=== PATIENT | male | born 1965 | race Caucasian/White ===

== ENCOUNTER 2016-10-17 20:05 | Emergency (ER) | payer OTHER ==
[2016-10-17 20:39] VITALS: BP 137/85; BMI 31.4
--- NOTE | 2016-10-17 21:19 | DR.GENAD ---
HPI - PCP Primary Care Physician: DENISE - Complaint/Symptoms Chief Complaint Doctors Comments: Patient tried to catch his as she was falling. He injured his right arm 4-5 days ago, now the extremity is tender and bruised. Chief Complaint:: TRIED TO STOP SPOUSE FROM FALLING DOWN WITH RIGHT ARM. RIHGHT ARM NOW HAS BRUISING AROUND ELBOW AREA GOING UP ARM AND DOWN ARM. A KNOT IS NOTED TO LOER BICEP Self Treatment fo Chief Complaint: ICE, AND ICY HOT - Source History Provided: Patient - Mode of Arrival Mode of Arrival: Ambulatory - Timing Onset of Chief Complaint: 10/14/16 PMH - PMH Past Medical History: Yes Past Medical History: Anxiety, COPD, Dyslipidemia, GERD Past Surgical History: Yes Surgical History: Appendectomy, Cholecystectomy Past Surgical History Comment: CATARACT SURGERY LEFT EYE, GLAUCOMA SHUNT LEFT EYE, ABDOMINAL SURGERY( CYST REMOVAL FROM BEHIND STOMACH) 3 HERNIA REPAIRS. GRAFT OF FEMORAL ARTERIES - Family History History of Family Medical Conditions: Yes Family Medical History: Diabetes Mellitus, Cancer, [place], Coronary Artery Disease, Heart Failure, Hypertension - Social History Does patient currently use any type of tobacco product: No Have you used tobacco products in the last 12 months: No How many years tobacco product used: 26 Does any household member use tobacco: No Alcohol Use: Rarely Do you use any recreational Drugs:: No Lives With: Spouse Lives Where: Home - infectious screening In the last 2 months have you had wt loss of >10#?: NO Have you had fever, night sweats or hemotysis?: No Have you traveled outside the country in the last 6 months?: No Isolation: Standard ROS - Review of Systems Constitutional: No Symptoms Reported Eyes: No Symptoms Reported ENTM: No Symptoms Reported Respiratoy: No Symptoms Reported Cardiovascular: No Symptoms Reported Gastrointestinal/Abdominal: No Symptoms Reported Genitourinary: No Symptoms Reported Neurological: No Symptoms Reported Musculoskeletal: Forearm (right) Integumentary: Change in Color (ecchymotic right medial forearm) Hematologic/Lymphatic: No Symptoms Reported Endocrine: No Symptoms Reported Psychiatric: No Symptoms Reported All Other Systems: Reviewed and Negative PE - Vital Signs Vitals: Temperature 97.8 F Pulse Rate 93 Respiratory Rate 16 Blood Pressure [Left Arm] 145/84 Blood Pressure [Right Arm] 119/88 Blood Pressure 137/85 O2 Sat by Pulse Oximetry 95 - General Limitations: No Limitations General Appearance: Alert, In No Apparent Distress - Head Head Exam: Normal Inspection, Atraumatic - Eyes Eye exam: Normal Appearance, PERRL, EOMI - ENT ENT Exam: Normal Exam External Ear Exam: Normal External Inspection TM/Canal Exam: Bilateral Normal Nose Exam: Normal Nose Exam, Sinus Tenderness Mouth Exam: Normal Inspection Throat Exam: Normal Inspection - Neck Neck Exam: Normal Inspection, Full ROM - Chest Chest Inspection: Normal Inspection, Symmetric Chest Wall Rise - Respiratory Respiratory Exam: Normal Lung Sounds Bilat Respiratory Exam: Bilateral Clear to Auscultation - Cardiovascular Cardiovascular Exam: Regular Rate - Abdominal Exam Abdominal Exam: Normal Inspection Abdominal Tenderness: negative: RUQ, RLQ, LUQ, LLQ, Epigastrium, Suprapubic, Diffuse, Mild, Moderate, Severe, Other - Extremities Extremities Exam: Tenderness (right bicep is tender with knot formation, forearm ), Joint Swelling, Other (decreased extension of the forearm) - Back Back Exam: Normal Inspection - Neurologic Neurological Exam: Alert, Oriented X3, CN II-XII Intact - Psychiatric Psychiatric Exam: Normal Affect - Skin Skin Exam: Warm, Dry, Intact - Diagnosis Discharge Problem: Biceps muscle tear Qualifiers: Encounter type: initial encounter Laterality: right Qualified Code(s): S46.111A - Strain of muscle, fascia and tendon of long head of biceps, right arm , initial encounter - Discharge Plan Condition: Stable - Follow ups/Referrals Follow ups/Referrals: SUSAN RODRIGUEZ [Primary Care Provider] - 3 days - Instructions
[2016-10-17] MEDS ORDERED: NORCO 7.5/325 MG TAB ONE (21:40)
[2016-10-17] MEDS ORDERED: NORCO 7.5/325 MG TAB PO ONE (21:40)
== END 2016-10-17 21:49 | disposition home or self-care (01) ==
LOC: ER 20:48
DX: S46.111A Strain of muscle, fascia and tendon of long head of biceps, right arm, initial encounter (principal); W19.XXXA Unspecified fall, initial encounter; Y92.9 Unspecified place or not applicable
CPT/HCPCS: 99282

== ENCOUNTER → 2016-10-21 | Outpatient (CLI) | payer OTHER ==
[2016-10-17 20:39] VITALS: BP 137/85
--- NOTE | 2016-10-21 17:33 | RAD ---
HISTORY: Pain Study: Right elbow series Comparison: None Findings: No acute cortical disruption or dislocation is identified. No significant joint space effusion can be seen. The radial head is unremarkable in its appearance. There is moderate soft tissue swelling along the medial aspect of the elbow. IMPRESSION: Moderate soft tissue swelling along the medial aspect of the elbow with no acute bony abnormality se en. Reported By:
--- NOTE | 2016-10-21 17:35 | RAD ---
Indication: Pain. Exam: Right forearm series. Technique: AP and lateral views were obtained of the right forearm. Findings: No fracture or dislocation is seen. The radius and ulna are intact. The joint spaces are n ormal. Impression: No abnormality seen. Reported By:
--- NOTE | 2016-10-21 17:37 | RAD ---
HISTORY: Pain Study: AP and lateral views Comparison: None Findings: No acute cortical disruption or dislocation can be identified. The humeral head appears unremarkabl e. No significant soft tissue swelling or injury can be seen. IMPRESSION: No abnormality seen. Reported By:
== END ==
LOC: RAD 14:49
PROVIDERS: ATTEND Nurse Practitioner Family
DX: M79.601 Pain in right arm (principal); M25.521 Pain in right elbow; M79.89 Other specified soft tissue disorders
CPT/HCPCS: 73060; 73070; 73090

== ENCOUNTER 2017-01-11 00:26 | Emergency (ER) | payer OTHER ==
[2017-01-11 00:54] VITALS: BP 112/79; BMI 30.8
--- NOTE | 2017-01-11 00:54 | DR.GENAD ---
HPI - PCP Primary Care Physician: wendy - HPI Comment HPI Comment: PAIN ASSOCIATED WITH SOB AND IS GETTING WORSE. NO FEVER. - Complaint/Symptoms Chief Complaint Doctors Comments: PAIN BACK AND SIDE INCLUDING LT LOWER CHEST TIMES ONE DAY. TOOK MED FOR PAIN BEFORE COMING. HAVE COPD AND TOOK NEB TREATMENT ALSO. Chief Complaint:: pain in back and side. patient has pain on inspiration and short of breath Self Treatment fo Chief Complaint: hydrocodone around 1700 and neb tx around 2230 - Nurses notes reviewed Nurses Notes Review: Yes - Source History Provided: Patient - Mode of Arrival Mode of Arrival: Ambulatory - Timing Onset of Chief Complaint: 01/09/17 Came on: Gradually - Duration Duration: Constant Duration: Days - Severity Severity: Moderate PMH - PMH Past Medical History: Yes Past Medical History: Anxiety, COPD, Dyslipidemia, GERD Past Surgical History: Yes Surgical History: Abdominal Surgery, Appendectomy, Cholecystectomy, Tonsillectomy Past Surgical History Comment: cataract removal with shunt in left eye - Family History History of Family Medical Conditions: Yes Family Medical History: Diabetes Mellitus, Cancer, [place], Coronary Artery Disease, Heart Failure, Hypertension - Social History Does patient currently use any type of tobacco product: No Have you used tobacco products in the last 12 months: No Type of Tobacco Use: None Does any household member use tobacco: No Alcohol Use: None Do you use any recreational Drugs:: No Lives With: Family Lives Where: Home - infectious screening In the last 2 months have you had wt loss of >10#?: NO Have you had fever, night sweats or hemotysis?: No Have you traveled outside the country in the last 6 months?: No Isolation: Standard ROS - Review of Systems Constitutional: See HPI, Weakness, Fatigue. negative: Chills Eyes: No Symptoms Reported. negative: Eye Pain, Discharge ENTM: Nose Congestion. negative: Ear Pain, Nose Discharge, Throat Pain Respiratoy: Productive Cough, Non-Productive Cough, Moist Cough, Barking Cough Cardiovascular: Chest Pain Gastrointestinal/Abdominal: Nausea. negative: Abdominal Pain, Constipation, Diarrhea, Vomiting Genitourinary: No Symptoms Reported. negative: Discharge, Hematuria Neurological: No Symptoms Reported Musculoskeletal: No Symptoms Reported, Back Pain (TENDER LT LOEER), Joint Swelling Integumentary: No Symptoms Reported Hematologic/Lymphatic: No Symptoms Reported Endocrine: No Symptoms Reported, See HPI, Excessive Sweating, Flushing, Intolerance to Heat All Other Systems: Reviewed and Negative PE - Vital Signs Vitals: Temperature 98 F Pulse Rate 90 Respiratory Rate 18 Blood Pressure [Left Arm] 145/84 Blood Pressure [Right Arm] 119/88 Blood Pressure 112/79 O2 Sat by Pulse Oximetry 95 - General Limitations: No Limitations - Head Head Exam: Normal Inspection - Eyes Eye exam: Normal Appearance - ENT ENT Exam: Normal External Ear Exam TM/Canal Exam: Bilateral Normal Nose Exam: Normal Nose Exam Mouth Exam: Normal Inspection Throat Exam: Normal Inspection - Neck Neck Exam: Normal Inspection - Chest Chest Inspection: Symmetric Chest Wall Rise - Respiratory Respiratory Exam: Normal Lung Sounds Bilat Respiratory Exam: Bilateral Wheezing, Bilateral Rhonchi, Upper Wheezing, Upper Rhonchi, Lower Wheezing, Lower Rhonchi - Cardiovascular Cardiovascular Exam: Regular Rate, Normal Rhythm, Normal Heart Sounds - Abdominal Exam Abdominal Exam: Normal Bowel Sounds, Soft. negative: Tenderness - Extremities Extremities Exam: Normal Inspection - Back Back Exam: Normal Inspection, Paraspinal Tenderness, Vertebral Tenderness ( LOWER BACK) - Neurologic Neurological Exam: Alert, Oriented X3 - Psychiatric Psychiatric Exam: Normal Affect, Normal Mood - Skin Skin Exam: Normal Color MDM - Additional Information Additional Information Obtained From: Family - Differential Diagnosis Differential Diagnosis: PNEUMONIA, PLEURISY, BRONCHITIS. COPD EXACERBATION Course - Treatment Treatment: SEE ORDERS. IM DECADRUM, TORADOL AND ROCEPHIN IN ED. - Reevaluation 1st: Improved - Education/Counseling Education/Counseling: Patient, Family, Education Educated On: Treatment, Diagnosis, Needs for Follow Up ROR - Labs Reviewed Laboratory Results Reviewed?: Yes Result Diagrams: 01/11/17 01:15 01/11/17 01:15 Laboratory: WBC 9.7 X10^3/uL (3.6-10.0) 01/11/17 01:15 RBC 5.45 X10^6/uL (4.7-6.0) 01/11/17 01:15 Hgb 16.1 g/dL (13.5-18.0) 01/11/17 01:15 Hct 46.5 % (42.0-54.0) 01/11/17 01:15 MCV 85.4 fL (80.0-100.0) 01/11/17 01:15 MCH 29.6 pg (27.0-34.0) 01/11/17 01:15 MCHC 34.7 g/dL (33.0-35.0) 01/11/17 01:15 RDW 13.5 % (11.6-16.5) 01/11/17 01:15 Plt Count 163 X10^3/uL (150.0-450.0) 01/11/17 01:15 MPV 8.7 fL (7.4-11.0) 01/11/17 01:15 Neut % 56.3 % (42.0-75.0) 01/11/17 01:15 Lymph % 33.9 % (21.0-51.0) 01/11/17 01:15 Slope % 7.4 % (0.0-13.0) 01/11/17 01:15 Eos % 1.3 % (0.9-2.9) 01/11/17 01:15 Baso % 1.1 % (0.2-1.0) H 01/11/17 01:15 Neut # 5.4 x10^3/uL (2.2-4.8) H 01/11/17 01:15 Lymph # 3.3 X10^3/uL (1.3-2.9) H 01/11/17 01:15 Slope # 0.7 x10^3/uL (0.3-0.8) 01/11/17 01:15 Eos # 0.1 x10^3/uL (0.0-0.2) 01/11/17 01:15 Baso # 0.1 X10^3/uL (0.0-0.1) 01/11/17 01:15 Absolute Nucleated RBC 0.0 /100WBC 01/11/17 01:15 Sodium 142 mmol/L (136-145) 01/11/17 01:15 Corrected Sodium TNP 01/11/17 01:15 Potassium 3.8 mmol/L (3.5-5.1) 01/11/17 01:15 Chloride 106 mmol/L (98-107) 01/11/17 01:15 Carbon Dioxide 26.8 mmol/L (21-32) 01/11/17 01:15 BUN 17 mg/dL (7-18) 01/11/17 01:15 Creatinine 1.17 mg/dL (0.70-1.30) 01/11/17 01:15 Est GFR (MDRD) Af Amer > 60 (>60) 01/11/17 01:15 Est GFR (MDRD) Non-Af > 60 (>60) 01/11/17 01:15 Glucose 92 mg/dL (65-99) 01/11/17 01:15 Calcium 9.4 mg/dL (8.5-10.1) 01/11/17 01:15 Corrected Calcium TNP 01/11/17 01:15 Total Bilirubin 0.40 mg/dL (0.2-1.0) 01/11/17 01:15 AST 24 Units/L (15-37) 01/11/17 01:15 ALT 77 Units/L (12-78) 01/11/17 01:15 Alkaline Phosphatase 99 Units/L (46-116) 01/11/17 01:15 Creatine Kinase 80 Units/L (39-308) 01/11/17 01:15 CK-MB (CK-2) < 1.0 ng/mL (0-4.0) 01/11/17 01:15 CK/CKMB % Calc 1.3 % (<4) 01/11/17 01:15 Troponin I < 0.02 ng/mL (0-1.5) 01/11/17 01:15 Total Protein 7.3 g/dL (6.4-8.2) 01/11/17 01:15 Albumin 3.7 g/dL (3.4-5.0) 01/11/17 01:15 Globulin 3.6 g/dL (2.5-4.5) 01/11/17 01:15 Albumin/Globulin Ratio 1.0 Ratio (1.1-2.1) L 01/11/17 01:15 - XRAY XRAY Interpreted by: Radiologist XRAY Findings: REPORT DISCUSS WITH PATIENT. - EKG Rhythm: NSR - Diagnosis Discharge Problem: Pneumonia, Pleurisy - Discharge Plan Disposition: 01 HOME, SELF-CARE Condition: Stable Prescriptions: Benzonatate [TESSALON PERLES *] 200 mg PO TID PRN #20 cap PRN Reason: Cough Cefdinir [Omnicef Cap 300 mg] 300 mg PO BID #20 cap Ketorolac Tromethamine [TORADOL TAB 10 MG *] 10 mg PO Q8H PRN #20 tab PRN Reason: Pain - Follow ups/Referrals Follow ups/Referrals: NFD,None [Primary Care Provider] - 01/12/17 - Instructions Instructions: Community-Acquired Pneumonia, Adult, [id number], Pleurisy, Easy -to-Read, Chest Wall Pain, [id number] Additional Instructions: RETURN TO ED IF WORSE.
[2017-01-11] MEDS ORDERED: TORADOL 60 MG VIAL IM ONE (01:16)
[2017-01-11] MEDS ORDERED: DECADRON INJ IM ONE (01:16)
[2017-01-11 01:22] LABS: BASOPHILS # (AUTO) 0.1 X10^3/uL (0.0-0.1); BASOPHILS % (AUTO) 1.1 % (0.2-1.0); EOSINOPHILS # (AUTO) 0.1 x10^3/uL (0.0-0.2); EOSINOPHILS % (AUTO) 1.3 % (0.9-2.9); HEMATOCRIT 46.5 % (42.0-54.0); HEMOGLOBIN 16.1 g/dL (13.5-18.0); LYMPHOCYTES # (AUTO) 3.3 X10^3/uL (1.3-2.9); LYMPHOCYTES % (AUTO) 33.9 % (21.0-51.0); MEAN CORPUSCULAR HEMOGLOBIN 29.6 pg (27.0-34.0); MEAN CORPUSCULAR HGB CONC 34.7 g/dL (33.0-35.0); MEAN CORPUSCULAR VOLUME 85.4 fL (80.0-100.0); MEAN PLATELET VOLUME 8.7 fL (7.4-11.0); MONOCYTES # (AUTO) 0.7 x10^3/uL (0.3-0.8); MONOCYTES % (AUTO) 7.4 % (0.0-13.0); NEUTROPHILS # (AUTO) 5.4 x10^3/uL (2.2-4.8); NEUTROPHILS % (AUTO) 56.3 % (42.0-75.0); PLATELET COUNT 163 X10^3/uL (150.0-450.0); RED BLOOD COUNT 5.45 X10^6/uL (4.7-6.0); RED CELL DISTRIBUTION WIDTH 13.5 % (11.6-16.5); WHITE BLOOD COUNT 9.7 X10^3/uL (3.6-10.0)
[2017-01-11] MEDS ORDERED: TORADOL 60 MG VIAL ONE (01:27)
[2017-01-11] MEDS ORDERED: DECADRON INJ ONE (01:27)
[2017-01-11 01:38] LABS: BLOOD UREA NITROGEN 17 mg/dL (7-18); CALCIUM 9.4 mg/dL (8.5-10.1); CARBON DIOXIDE 26.8 mmol/L (21-32); CHLORIDE 106 mmol/L (98-107); CREATININE 1.17 mg/dL (0.70-1.30); GLUCOSE 92 mg/dL (65-99); SODIUM 142 mmol/L (136-145); TROPONIN I < 0.02 ng/mL (0-1.5); eGFR BLACK RACES > 60 (>60); eGFR NON BLACK RACES > 60 (>60)
[2017-01-11 01:41] LABS: ALANINE AMINOTRANSFERASE 77 Units/L (12-78); ALBUMIN 3.7 g/dL (3.4-5.0); ALKALINE PHOSPHATASE 99 Units/L (46-116); ASPARTATE AMINO TRANSFERASE 24 Units/L (15-37); CKMB % 1.3 % (<4); CREATINE KINASE 80 Units/L (39-308); CREATINE KINASE MB < 1.0 ng/mL (0-4.0); TOTAL PROTEIN 7.3 g/dL (6.4-8.2)
--- NOTE | 2017-01-11 01:49 | RAD ---
AP chest Indication: COPD with chest pain Comparison: 09/12/2014 Findings: The lungs are hyperexpanded with coarsening interstitium consistent with COPD. There are i ncreased reticular opacities within the left greater than right lung bases potentially representing subsegmental atelectasis, scarring or developing infiltrate. Correlation with clinical findings and potentially two view chest x-ray can be performed as clinically warranted. No pleural effusion or pn eumothorax. No acute osseous abnormality. Impression: See above. Reported By:
[2017-01-11] MEDS ORDERED: ROCEPHIN VIAL 1 GM IM ONE (01:52)
[2017-01-11] MEDS ORDERED: ROCEPHIN VIAL 1 GM ONE (02:01)
[2017-01-11] MEDS ORDERED: XYLOCAINE 1 % (PLAIN) ONE (02:02)
== END 2017-01-11 02:26 | disposition home or self-care (01) ==
LOC: ER 00:26
DX: J18.9 Pneumonia, unspecified organism (principal); R09.1 Pleurisy
CPT/HCPCS: 36415; 71010; 80053; 82550; 82553; 84484; 85025; 93005; 93010; 96372; 99283; J0696; J1100; J1885; J2001

== ENCOUNTER → 2017-06-05 | Outpatient (CLI) | payer OTHER ==
--- NOTE | 2017-06-05 13:02 | RAD ---
Examination: Chest x-ray. Clinical History: Wheezing. Technique: PA and lateral views of the chest were obtained. Comparison: 01/11/2017. Findings: The cardiac and mediastinal contours are within normal limits. No pneumothorax or pleural effusion is noted. The lungs are mildly hyperinflated, suggestive of COPD/emphysema or asthma. No confluent pulmonary op acity is noted. No acute osseous abnormality is noted. Impression: 1. The lungs are mildly hyperinflated, suggestive of COPD/emphysema or asthma. No confluent pulmonary opacity is noted. Reported By:
== END ==
LOC: RAD 12:29
PROVIDERS: ATTEND Internal Medicine Sleep Medicine
DX: R06.02 Shortness of breath (principal)
CPT/HCPCS: 71020

== ENCOUNTER 2017-08-08 13:17 | Emergency (ER) | payer OTHER ==
[2017-08-08 13:42] VITALS: BP 120/73; BMI 32.9
[2017-08-08] MEDS ORDERED: DUONEB 0.5 MG/3 MG NEB ONE (14:11)
[2017-08-08] MEDS ORDERED: SOLU-Medrol 125 MG VIAL IVP ONE (14:11)
[2017-08-08] MEDS ORDERED: DUONEB 0.5 MG/3 MG ONE (14:17)
--- NOTE | 2017-08-08 14:20 | DR.GENAD ---
HPI - PCP Primary Care Physician: DENISE - Complaint/Symptoms Chief Complaint Doctors Comments: Patient is complaining of cough for the past 3 -4 days with clear sputum that has turnedbrowinis with headaches, SOB, wheeing getting worst. Patient states he is on home oxygen at 2 liters and is taking nebulizer treatments three times daily with albuterol. Sates he has fullness in his chest when he cough like something is standing on his chest. States he is a patient of Mel[facility] Stout and he stopped smoking 11 years ago. states she has been taking antibiotics of Duricef and decadron 4mg at home without improvement. He denies swelling of hands or feet. Chief Complaint:: HEADACHE, SUBJECTIVE FEVER - Nurses notes reviewed Nurses Notes Review: Yes - Source History Provided: Patient, Family Member - Mode of Arrival Mode of Arrival: Ambulatory - Timing Onset of Chief Complaint: 08/04/17 Came on: Gradually - Duration Duration: Constant How lon Duration: Days - Location Location: chest pain - Severity Severity: Moderate - Modifying Factors Worsens:: movment and deep breathe Improves:: nothing PMH - PMH Past Medical History: Yes Past Medical History: COPD, Dyslipidemia Past Surgical History: Yes Surgical History: Abdominal Surgery, Appendectomy, Cholecystectomy, Tonsillectomy Past Surgical History Comment: CATARACT SURGERY - Family History History of Family Medical Conditions: Yes Family Medical History: Hypertension - Social History Does patient currently use any type of tobacco product: No Have you used tobacco products in the last 12 months: No Type of Tobacco Use: None Does any household member use tobacco: No Alcohol Use: None Do you use any recreational Drugs:: No Lives With: Family Lives Where: Home - infectious screening In the last 2 months have you had wt loss of >10#?: NO Have you had fever, night sweats or hemotysis?: No Have you traveled outside the country in the last 6 months?: No Isolation: Standard ROS - Review of Systems Constitutional: No Symptoms Reported Eyes: No Symptoms Reported. negative: See HPI, Eye Pain, Blurred Vision, Tearing, Discharge, Photophobia, Diplopia, Other ENTM: No Symptoms Reported Respiratoy: No Symptoms Reported, Productive Cough, Short of Breath, Wheezing Cardiovascular: No Symptoms Reported, Chest Pain. negative: See HPI, Edema, Palpitations, Syncope, Cyanosis, Skin Mottling, Other Gastrointestinal/Abdominal: No Symptoms Reported. negative: See HPI, Abdominal Pain, Constipation, Diarrhea, Nausea, Vomiting, Food Intolerance, Other Genitourinary: No Symptoms Reported Neurological: No Symptoms Reported Musculoskeletal: No Symptoms Reported Integumentary: No Symptoms Reported Hematologic/Lymphatic: No Symptoms Reported Endocrine: No Symptoms Reported. negative: See HPI, Excessive Sweating, Flushing, Intolerance to Cold, Intolerance to Heat, Increased Hunger, Increased Thirst, Increased Urine, Unexplained Weight Gain, Unexplained Weight Loss, Failure to Thrive, Decreased Appetite, Other Psychiatric: No Symptoms Reported PE - Vital Signs Vitals: Temperature 98.1 F Pulse Rate 84 Respiratory Rate 20 Blood Pressure [Left Arm] 145/84 Blood Pressure [Right Arm] 119/88 Blood Pressure 120/73 O2 Sat by Pulse Oximetry 91 - General Limitations: No Limitations General Appearance: Alert, In Distress (slight), Obese - Head Head Exam: Normal Inspection, Atraumatic, Normocephalic - Eyes Eye exam: Normal Appearance, PERRL, EOMI. negative: Scleral Icterus, Conjunctival Injection, Nystagmus, Miosis, Mydrasis, Periorbital Swelling, Periorbital Tenderness, Other - ENT ENT Exam: Normal Exam, Normal Oropharynx, Normal External Ear Exam, Mucous Membranes Moist, TM's Normal Bilaterally External Ear Exam: Normal External Inspection TM/Canal Exam: Bilateral Normal Nose Exam: Normal Nose Exam Mouth Exam: Normal Inspection. negative: Drooling, Trismus, Lip Swelling, Tongue Elevation, Tongue Swelling, Laceration, Other Throat Exam: Normal Inspection - Neck Neck Exam: Normal Inspection, Full ROM, Trachea Midline - Chest Chest Inspection: Normal Inspection, Symmetric Chest Wall Rise - Respiratory Respiratory Exam: Normal Lung Sounds Bilat, Prolonged Expiratory Phase Respiratory Exam: Bilateral Wheezing, Bilateral Rhonchi, Bilateral Decreased Breath Sounds - Cardiovascular Cardiovascular Exam: Regular Rate, Normal Rhythm, Normal Heart Sounds - Abdominal Exam Abdominal Exam: Normal Inspection, Normal Bowel Sounds, Soft Abdominal Tenderness: negative: RUQ, RLQ, LUQ, LLQ, Epigastrium, Suprapubic, Diffuse, Mild, Moderate, Severe, Other - Extremities Extremities Exam: Normal Inspection, Full ROM, Normal Capillary Refill. negative: Tenderness, Edema, Joint Swelling, Calf Tenderness, Other - Back Back Exam: Normal Inspection, Full ROM - Neurologic Neurological Exam: Alert, Oriented X3, CN II-XII Intact, Normal Gait, Reflexes Normal - Psychiatric Psychiatric Exam: Normal Affect, Normal Mood - Skin Skin Exam: Warm, Dry, Intact, Normal Color ROR - Labs Reviewed Laboratory Results Reviewed?: Yes (all labs and x-ray results reviewed and discussed with patient and spouse) Result Diagrams: 08/08/17 14:20 08/08/17 14:20 Laboratory: WBC 8.4 X10^3/uL (3.6-10.0) 08/08/17 14:20 RBC 5.72 X10^6/uL (4.7-6.0) 08/08/17 14:20 Hgb 17.0 g/dL (13.5-18.0) 08/08/17 14:20 Hct 49.0 % (42.0-54.0) 08/08/17 14:20 MCV 85.8 fL (80.0-100.0) 08/08/17 14:20 MCH 29.8 pg (27.0-34.0) 08/08/17 14:20 MCHC 34.7 g/dL (33.0-35.0) 08/08/17 14:20 RDW 14.3 % (11.6-16.5) 08/08/17 14:20 Plt Count 160 X10^3/uL (150.0-450.0) 08/08/17 14:20 MPV 9.4 fL (7.4-11.0) 08/08/17 14:20 Neut % 75.8 % (42.0-75.0) H 08/08/17 14:20 Lymph % 12.1 % (21.0-51.0) L 08/08/17 14:20 Republic % 11.5 % (0.0-13.0) 08/08/17 14:20 Eos % 0.1 % (0.9-2.9) L 08/08/17 14:20 Baso % 0.5 % (0.2-1.0) 08/08/17 14:20 Neut # 6.4 x10^3/uL (2.2-4.8) H 08/08/17 14:20 Lymph # 1.0 X10^3/uL (1.3-2.9) L 08/08/17 14:20 Republic # 1.0 x10^3/uL (0.3-0.8) H 08/08/17 14:20 Eos # 0.0 x10^3/uL (0.0-0.2) 08/08/17 14:20 Baso # 0.0 X10^3/uL (0.0-0.1) 08/08/17 14:20 Absolute Nucleated RBC 0.1 /100WBC 08/08/17 14:20 INR Target Range - 08/08/17 14:20 INR 1.02 (0.8-1.3) 08/08/17 14:20 PTT 31.0 SECONDS (22.9-36.5) 08/08/17 14:20 PTT Comment - 08/08/17 14:20 Sodium 140 mmol/L (136-145) 08/08/17 14:20 Corrected Sodium TNP 08/08/17 14:20 Potassium 3.8 mmol/L (3.5-5.1) 08/08/17 14:20 Chloride 103 mmol/L (98-107) 08/08/17 14:20 Carbon Dioxide 28.9 mmol/L (21-32) 08/08/17 14:20 BUN 11 mg/dL (7-18) 08/08/17 14:20 Creatinine 1.20 mg/dL (0.70-1.30) 08/08/17 14:20 Est GFR (MDRD) Af Amer > 60 (>60) 08/08/17 14:20 Est GFR (MDRD) Non-Af > 60 (>60) 08/08/17 14:20 Glucose 100 mg/dL (65-99) H 08/08/17 14:20 Calcium 9.6 mg/dL (8.5-10.1) 08/08/17 14:20 Corrected Calcium TNP 08/08/17 14:20 Magnesium 2.0 mg/dL (1.7-2.9) 08/08/17 14:20 Total Bilirubin 0.50 mg/dL (0.2-1.0) 08/08/17 14:20 AST 37 Units/L (15-37) 08/08/17 14:20 ALT 54 Units/L (12-78) 08/08/17 14:20 Alkaline Phosphatase 110 Units/L (46-116) 08/08/17 14:20 Creatine Kinase 52 Units/L (39-308) 08/08/17 14:20 CK-MB (CK-2) < 1.0 ng/mL (0-4.0) 08/08/17 14:20 CK/CKMB % Calc 1.9 % (<4) 08/08/17 14:20 Troponin I < 0.02 ng/mL (0-1.5) 08/08/17 14:20 Total Protein 8.0 g/dL (6.4-8.2) 08/08/17 14:20 Albumin 3.8 g/dL (3.4-5.0) 08/08/17 14:20 Globulin 4.2 g/dL (2.5-4.5) 08/08/17 14:20 Albumin/Globulin Ratio 0.9 Ratio (1.1-2.1) L 08/08/17 14:20 Influenza Type A (PCR) Negative (NEGATIVE) 08/08/17 15:01 Influenza Type B (PCR) Negative (NEGATIVE) 08/08/17 15:01 - XRAY XRAY Interpreted by: Radiologist (CXR: no significant change from 06/05/17. no acute changes noted) - EKG Rate: 80 Joseph: Normal Rhythm: NSR Block: None Hypertrophy: None ST: Normal - Diagnosis Discharge Problem: COPD (chronic obstructive pulmonary disease), Bronchitis - Discharge Plan Disposition: HOME, SELF-CARE Condition: Stable Prescriptions: Ipratropium/Albuterol Nebule [DUONEB 0.5 MG/3 MG NEBULE *] 1 nebule NEB QID # 120 each - Follow ups/Referrals Follow ups/Referrals: SUSAN STOUT [Primary Care Provider] - 3 days - Instructions Instructions: Chronic Obstructive Pulmonary Disease Exacerbation, [id number] , Acute Bronchitis, [id number]
[2017-08-08 14:31] LABS: BASOPHILS % (AUTO) 0.5 % (0.2-1.0); EOSINOPHILS % (AUTO) 0.1 % (0.9-2.9); LYMPHOCYTES % (AUTO) 12.1 % (21.0-51.0); MEAN CORPUSCULAR HEMOGLOBIN 29.8 pg (27.0-34.0); MEAN CORPUSCULAR HGB CONC 34.7 g/dL (33.0-35.0); MEAN CORPUSCULAR VOLUME 85.8 fL (80.0-100.0); MEAN PLATELET VOLUME 9.4 fL (7.4-11.0); MONOCYTES % (AUTO) 11.5 % (0.0-13.0); NEUTROPHILS # (AUTO) 6.4 x10^3/uL (2.2-4.8); NEUTROPHILS % (AUTO) 75.8 % (42.0-75.0); PLATELET COUNT 160 X10^3/uL (150.0-450.0); RED BLOOD COUNT 5.72 X10^6/uL (4.7-6.0); RED CELL DISTRIBUTION WIDTH 14.3 % (11.6-16.5); WHITE BLOOD COUNT 8.4 X10^3/uL (3.6-10.0)
[2017-08-08] MEDS ORDERED: SOLU-Medrol 125 MG VIAL ONE (14:50)
[2017-08-08 14:52] LABS: BLOOD UREA NITROGEN 11 mg/dL (7-18); CALCIUM 9.6 mg/dL (8.5-10.1); CARBON DIOXIDE 28.9 mmol/L (21-32); CHLORIDE 103 mmol/L (98-107); SODIUM 140 mmol/L (136-145); TROPONIN I < 0.02 ng/mL (0-1.5); eGFR BLACK RACES > 60 (>60); eGFR NON BLACK RACES > 60 (>60)
--- NOTE | 2017-08-08 14:52 | RAD ---
Examination: Portable AP chest History: Headache and fever, chest pain Comparison 06/05/2017 Findings: Continued normal heart size with hyperaerated lungs and mild fibrosis or atelectasis in the bases. No evidence for pneumonia, pneumothorax or pulmonary edema. Impression: No significant change since 06/05/2017. Reported By:
[2017-08-08 14:56] LABS: ALANINE AMINOTRANSFERASE 54 Units/L (12-78); ALBUMIN 3.8 g/dL (3.4-5.0); ALKALINE PHOSPHATASE 110 Units/L (46-116); ASPARTATE AMINO TRANSFERASE 37 Units/L (15-37); CREATINE KINASE 52 Units/L (39-308); CREATINE KINASE MB < 1.0 ng/mL (0-4.0)
[2017-08-08 14:57] LABS: CKMB % 1.9 % (<4)
== END 2017-08-08 16:14 | disposition home or self-care (01) ==
LOC: ER 13:33
DX: J44.9 Chronic obstructive pulmonary disease, unspecified (principal); J40 Bronchitis, not specified as acute or chronic
CPT/HCPCS: 36415; 71045; 80053; 82550; 82553; 83735; 84484; 85025; 85610; 85730; 87502; 93005; 93010; 94640; 96365; 96374; 99283; A4222; J2930; J7620